=== PATIENT | male | born 1975 | race Hispanic/Latino ===

== ENCOUNTER 2021-11-10 23:27 | Emergency (ER) | payer OTHER ==
[2021-11-11] MEDS ORDERED: Albuterol Sulfate 2.5 mg/0.5 ml Neb ONE (00:07)
[2021-11-11] MEDS ORDERED: predniSONE 20 MG TAB ONE (00:07)
== END 2021-11-11 00:54 | disposition home or self-care (01) ==
LOC: BURERS 23:27
DX: J45.901 Unspecified asthma with (acute) exacerbation (principal)
CPT/HCPCS: 94640; J7512; J7611; J7620

== ENCOUNTER 2022-01-14 00:54 | Emergency (ER) | payer OTHER ==
[2022-01-14] MEDS ORDERED: predniSONE 20 MG TAB ONE (01:19)
[2022-01-14] MEDS ORDERED: Albuterol Sulfate 2.5 mg/3 ml Neb ONE ×2 (02:21→02:46)
[2022-01-14] MEDS ORDERED: Albuterol Sulfate 2.5 mg/0.5 ml Neb ONE (02:46)
[2022-01-14 04:24] LABS: SARS-CoV-2 NAA Rapid Test Not Detected (NotDetected)
== END 2022-01-14 05:00 | disposition home or self-care (01) ==
LOC: BURERS 00:54
DX: J45.901 Unspecified asthma with (acute) exacerbation (principal); Z20.822 Contact with and (suspected) exposure to COVID-19
CPT/HCPCS: 94640; 94644; 94760; J7512; J7611; J7620; U0002

== ENCOUNTER 2022-02-24 00:11 | Emergency (ER) | payer OTHER ==
[2022-02-24] MEDS ORDERED: Albuterol Sulfate 2.5 mg/0.5 ml Neb ONE (00:42)
[2022-02-24] MEDS ORDERED: Dexamethasone 10 MG/ML VIAL ONE (00:42)
[2022-02-24] MEDS ORDERED: Ipratropium Bromide 2.5 ml Neb ONE (00:42)
== END 2022-02-24 02:18 | disposition home or self-care (01) ==
LOC: BURERS 00:11
DX: J45.901 Unspecified asthma with (acute) exacerbation (principal)
CPT/HCPCS: 96372; J1100; J7611

== ENCOUNTER 2022-03-28 02:18 | Emergency (ER) | payer OTHER ==
[2022-03-28] MEDS ORDERED: methylPREDNISolone Sod Succ/PF 125 MG/2 ML VIAL ONE (02:50)
[2022-03-28 03:04] LABS: #Basophils 0.2 thou/uL (0.0-0.2); #Eosinphils 1.6 thou/uL (0.0-0.7); #Lymphocytes 2.2 thou/uL (1.20-3.40); #Monocytes 0.9 thou/uL (0.11-0.59); #Neutrophils 2.7 thou/uL (1.40-6.50); %Basophils 2.3 % (0.0-1.0); %Eosinophils 20.8 % (0.0-10.0); %Lymphocytes 29.3 % (21.0-51.0); %Neutrophils 35.6 % (42.0-75.0); Hemoglobin 15.4 g/dL (14.0-18.0); Mean Corpuscular HGB CONC 33.6 g/dL (32.0-36.0); Mean Corpuscular Hemoglobin 30.3 pg (27.0-31.0); Mean Platelet Volume 8.7 fL (7.4-10.4); Platelet Count 208 thou/uL (130-400); RBC Distribution Width 12.3 % (11.5-14.5); Red Blood Cell (RBC) Count 5.08 mill/uL (4.70-6.10); White Blood Cell (WBC) Count 7.6 thou/uL (4.8-10.8)
[2022-03-28] MEDS ORDERED: Magnesium 2 GM/50 ML BAG (IN WATER) ONE (03:06)
[2022-03-28 03:18] LABS: ALT (SGPT) 18 U/L (8-55); AST (SGOT) 14 U/L (5-34); Albumin 4.3 g/dL (3.5-5.0); Alkaline Phosphatase 103 U/L (40-110); Anion Gap 12 mmol/L (10-20); BUN (Urea Nitrogen) 12 mg/dL (8.9-20.6); Bilirubin, Total 0.5 mg/dL (0.2-1.2); Calc. Creatinine Clearance 0 mL/min (70-130); Carbon Dioxide 25 mmol/L (22-29); Chloride 105 mmol/L (98-107); Estimated GFR 110; Globulin 3.1 g/dL (2.4-3.5); Glucose 108 mg/dL (70-105); Magnesium 2.1 mg/dL (1.6-2.6); Potassium 3.4 mmol/L (3.5-5.1); Protein, Total 7.4 g/dL (6.0-8.3); Sodium 139 mmol/L (136-145)
[2022-03-28 04:11] LABS: SARS-CoV-2 NAA Rapid Test DETECTED (NotDetected)
[2022-03-28 04:30] LABS: Bilirubin Negative (Negative); Blood, Urine Negative (Negative); Clarity Clear (Clear); Glucose, Urine (Dipstick) Negative (Negative); Ketone, Urine 40 mg/dL (Negative); Leukocyte Negative (Negative); Nitrite Negative (Negative); Protein, Urine (Dipstick) Negative (Neg-Trace); Specific Gravity, Urine 1.025 (1.005-1.030); Urobilinogen 0.2 mg/dL (Less than 2)
== END 2022-03-28 05:56 | disposition home or self-care (01) ==
LOC: BURERS 02:18
DX: U07.1 COVID-19 (principal); J45.901 Unspecified asthma with (acute) exacerbation; Z79.899 Other long term (current) drug therapy
CPT/HCPCS: 36415; 71045; 80053; 81003; 83735; 83880; 84484; 85025; 85379; 87804; 93005; 96374; 96375; J2930; J3475; J7620; U0002

== ENCOUNTER 2022-05-12 10:30 | Observation (INO) | payer BC, OTHER, SELFPAY ==
[2022-05-12] MEDS ORDERED: methylPREDNISolone Sod Succ/PF 125 MG/2 ML VIAL ONE (10:44)
[2022-05-12 11:05] LABS: #Basophils 0.2 thou/uL (0.0-0.2); #Eosinphils 1.6 thou/uL (0.0-0.7); #Lymphocytes 1.7 thou/uL (1.20-3.40); #Monocytes 0.5 thou/uL (0.11-0.59); #Neutrophils 6.5 thou/uL (1.40-6.50); %Basophils 1.7 % (0.0-1.0); %Eosinophils 15.3 % (0.0-10.0); %Lymphocytes 16.1 % (21.0-51.0); %Monocytes 5.2 % (0.0-10.0); %Neutrophils 61.7 % (42.0-75.0); Hemoglobin 16.7 g/dL (14.0-18.0); Mean Corpuscular HGB CONC 33.6 g/dL (32.0-36.0); Mean Corpuscular Hemoglobin 30.3 pg (27.0-31.0); Mean Corpuscular Volume 90.1 fl (78.0-98.0); Mean Platelet Volume 8.9 fL (7.4-10.4); Platelet Count 232 thou/uL (130-400); RBC Distribution Width 12.3 % (11.5-14.5); Red Blood Cell (RBC) Count 5.52 mill/uL (4.70-6.10); White Blood Cell (WBC) Count 10.5 thou/uL (4.8-10.8)
[2022-05-12 11:19] LABS: Anion Gap 12 mmol/L (10-20); BUN (Urea Nitrogen) 11 mg/dL (8.9-20.6); Calc. Creatinine Clearance 0 mL/min (70-130); Calcium 9.4 mg/dL (7.8-10.44); Carbon Dioxide 28 mmol/L (22-29); Chloride 104 mmol/L (98-107); Estimated GFR 111; Glucose 110 mg/dL (70-105); Potassium 4.1 mmol/L (3.5-5.1); Sodium 140 mmol/L (136-145)
[2022-05-12 15:22] VITALS: BMI 25.7
[2022-05-12] MEDS ORDERED: Famotidine 20 MG TAB PO PRN (16:13)
[2022-05-12] MEDS ORDERED: Senokot S 8.6-50 MG TAB PO PRN (16:14)
[2022-05-12] MEDS ORDERED: Guaifenesin DM 100-10/5 ML UDCUP PO PRN (16:14)
[2022-05-12] MEDS ORDERED: Acetaminophen 325 MG TAB PO PRN (16:14)
[2022-05-12] MEDS ORDERED: Ondansetron ODT 4 MG TAB PO PRN (16:14)
[2022-05-12] MEDS ORDERED: Loperamide HCl 2 MG CAP PO PRN (16:14)
[2022-05-12] MEDS: Albuterol Sulfate 2.5 mg/3 ml Neb NEB SCH ×2 (16:49→21:08)
[2022-05-12] MEDS: methylPREDNISolone Sod Succ/PF 125 MG/2 ML VIAL IVP SCH (16:53)
[2022-05-12] MEDS ORDERED: methylPREDNISolone Sod Succ 40 MG VIAL IVP SCH ×2 (18:00)
[2022-05-12] MEDS: Mometasone/Formoterol 60 PUFF AER INH SCH (21:10)
[2022-05-13] MEDS: methylPREDNISolone Sod Succ/PF 125 MG/2 ML VIAL IVP SCH ×3 (00:06→11:23)
[2022-05-13] MEDS: Albuterol Sulfate 2.5 mg/3 ml Neb NEB SCH ×4 (01:45→12:42)
[2022-05-13] MEDS: Mometasone/Formoterol 60 PUFF AER INH SCH (08:26)
[2022-05-13 13:22] VITALS: BP 135/69; TEMP 98.8
[2022-05-14] MEDS ORDERED: predniSONE 20 MG TAB PO SCH (08:00)
== END 2022-05-13 13:29 | disposition home or self-care (01) ==
LOC: BURERS 10:30 → BURMED 14:30
PROVIDERS: ADMIT Family Medicine; ATTEND Family Medicine
DX: J45.901 Unspecified asthma with (acute) exacerbation (principal)
CPT/HCPCS: 71045; 80048; 85025; 94664; 94760; 96374; 96376; G0378; J2930; J7611; J7620; Q0162